=== PATIENT | female | born 2000 | race Caucasian/White ===

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

== ENCOUNTER 2022-01-18 09:49 | Outpatient (REF) | payer BC, MEDICAID, SELFPAY ==
[2022-01-18 11:33] LABS: HIV AB/AG Nonreactive (Nonreactive); HIV Num 1 0.04 S/CO (0.00-0.99)
[2022-01-18 11:36] LABS: Syphilis Screen Nonreactive (Nonreactive)
== END 2022-01-18 09:50 | disposition home or self-care (01) ==
LOC: HO.LAB 09:49
PROVIDERS: Absent Provider Internal Medicine; PCP Internal Medicine; Visit Provider Internal Medicine
DX: Z11.3 Encounter for screening for infections with a predominantly sexual mode of transmission (principal); Z11.4 Encounter for screening for human immunodeficiency virus [HIV]
CPT/HCPCS: 36415; 86780; 87389

== ENCOUNTER → 2022-04-19 14:00 | Outpatient (BNVA) | payer BC, MEDICAID, SELFPAY | PROVIDERS: PCP Internal Medicine; Visit Provider Advanced Practice Midwife | DX: Z13.89 Encounter for screening for other disorder (principal) ==

== ENCOUNTER → 2022-05-11 13:39 | Outpatient (BNVA) | payer BC, MEDICAID, SELFPAY | PROVIDERS: PCP Internal Medicine; Visit Provider Obstetrics & Gynecology | DX: Z30.09 Encounter for other general counseling and advice on contraception (principal) | CPT/HCPCS: 81025 ==

== ENCOUNTER 2022-08-07 14:19 | Outpatient (REF) | payer BC, SELFPAY ==
[2022-08-07 18:31] LABS: CT PCR NOT DETECTED (Not Detect.); NG PCR NOT DETECTED (Not Detect.)
[2022-08-08 09:56] LABS: BV Int Neg Control Negative (Negative); BV Int Pos Control Positive (Positive)
== END 2022-08-07 14:20 | disposition home or self-care (01) ==
LOC: HO.LNP 14:19
PROVIDERS: PCP Internal Medicine; Visit Provider Obstetrics & Gynecology
DX: Z30.9 Encounter for contraceptive management, unspecified (principal); B37.31 Acute candidiasis of vulva and vagina
CPT/HCPCS: 0353U; 87480; 87510; 87660

== ENCOUNTER 2022-09-25 15:33 | Outpatient (REF) | payer BC, SELFPAY ==
[2022-09-26 16:05] LABS: CT PCR NOT DETECTED (Not Detect.); NG PCR NOT DETECTED (Not Detect.)
== END 2022-09-25 15:34 | disposition home or self-care (01) ==
LOC: HO.LNP 15:33
PROVIDERS: PCP Internal Medicine; Visit Provider Obstetrics & Gynecology
DX: Z30.9 Encounter for contraceptive management, unspecified (principal); N93.9 Abnormal uterine and vaginal bleeding, unspecified; Z20.2 Contact with and (suspected) exposure to infections with a predominantly sexual mode of transmission
CPT/HCPCS: 0353U; 81025

== ENCOUNTER 2022-11-28 12:14 | Outpatient (AMB) | payer BC, SELFPAY ==
--- NOTE | 2022-11-28 13:43 | AM.OFFWIN_ITS ---
Intake Vital Signs 11/28/22 13:49 Height 5 ft 2 in Weight 130 lb BMI 23.8 BP 122/70 Blood Pressure Location Lt brachial Position Sitting Pulse 97 Pulse Source Pulse Oximeter Temp 97.3 F Temp Source Temporal Artery Scan Pulse Oximetry (%) 97 Oxygen Delivery Method Room Air Intake Visit Reasons: EST/sinus infection/[phone] Intake Note: Pt is here c/o post covid symptoms. Pt states she tested positive for COVID on 11/23/22. Patient Tobacco Use Status: Never used Tobacco Allergies No Known Allergies Allergy (Verified 11/28/22 13:43) Do you need a note to return to daycare/school/sports/work: No HPI EST/sinus infection/[phone] HPI Details 22-year-old female patient presents today for sick visit. She developed COVID symptoms last week, and tested positive on 11/23. Since then, the worst of her symptoms including headache and body ache have resolved, however she has persistent severe sinus pressure and congestion. She has been taking Mucinex at home without relief. She has a trip planned this weekend and is afraid she will not feel better by then. She is also set to return to work in 2 days and is not sure she will feel ready to do so at that time. [facility] Medical History Cough Dizziness Palpitations Physical exam Scoliosis Weight loss Surgical History No pertinent past surgical history Family History Mother No problems noted. Father No problems noted. Maternal Grandfather Breast cancer Paternal Grandmother Breast cancer Maternal Grandfather Cancer Social History Housing: House Alcohol intake: never Patient Tobacco Use Status: Never used Tobacco e-Cigarette/Vaping Use: Never Used Second Hand Smoke Exposure: No service: No Current occupational status: employed Current occupational exposures/hazards: No Cognitive needs: No Hearing needs: No Vision needs: No Female Reproductive History Menstrual Age of Menarche: 16 Review of Systems Const All systems reviewed & are unremarkable except as noted in HPI and below Physical Exam Vital Signs: Last Vital Signs Temp 97.3 F 11/28/22 13:49 Pulse 97 11/28/22 13:49 BP 122/70 11/28/22 13:49 Pulse Ox 97 11/28/22 13:49 Oxygen Delivery Method Room Air 11/28/22 13:49 BMI result Body Mass Index 23.8 Const General: cooperative, healthy appearing and no acute distress HEENT Head: Yes normal to inspection Ears: hearing grossly normal bilaterally and TM's normal bilaterally General nose exam: Normal external nose present and Normal nasal mucous membranes and turbinates present Face and sinus: Yes sinus tenderness ( Frontal and maxillary) Mouth: Normal oral and palatal mucosa present and moist mucous membranes Throat: Yes posterior oropharynx normal Neck Neck: Yes no lymphadenopathy Resp Effort & Inspection: normal respiratory effort and able to speak in complete sentences Auscultation: clear to auscultation bilaterally Cardio Jugular venous distension: no JVD Palpation: normal PMI Rate: regular rate Rhythm: regular rhythm Skin General skin exam: no rashes or lesions noted Extrem General: Yes capillary refill normal and Yes no clubbing, cyanosis or edema Psych Appearance: grossly normal Mental Status: mental status grossly normal Speech and movement: Normal speech and movement present Assessment & Plan Assessment & Plan (1) COVID-19: Code(s): U07.1 - COVID-19 Plan: Patient has some ongoing COVID-19 symptoms, which we reviewed are common. I encouraged her to continue to rest, hydrate, advanced diet as tolerated. I provided her a work note as requested. If anything worsens, or does not continue to resolve with time and conservative measures, she should return to the clinic for further evaluation. (2) Sinusitis, acute: Code(s): J01.90 - Acute sinusitis, unspecified Qualifiers: Sinusitis location: frontal Recurrence: non-recurrent Qualified Code(s): J01.10 - Acute frontal sinusitis, unspecified Plan: I will start her on azithromycin for her sinusitis. She has done well on this previously. We reviewed indications, use, possible side effects. She can continue to use decongestants as needed. Medications: New azithromycin For 250 mg dose pack: take 500 mg today (day 1), then 250 mg for 4 days (days 2-5) PO 6 tabs 0RF J01.10 - Acute frontal sinusitis, unspecified Coding Level of Care Code Est Pt Level 3 (14464) Diagnoses COVID-19 U07.1 Sinusitis, acute J01.10 Sinusitis location: frontal Recurrence: non-recurrent
[2022-11-28 13:49] VITALS: BP 122/70; PULSE 97; TEMP 36.3; O2SAT 97; BMI 23.8
== END 2022-11-28 14:14 | disposition home or self-care (01) ==
PROVIDERS: PCP Internal Medicine; Visit Provider Nurse Practitioner Family
DX: U07.1 COVID-19 (principal); J01.10 Acute frontal sinusitis, unspecified
CPT/HCPCS: 99213

== ENCOUNTER 2023-01-30 14:27 | Outpatient (AMB) | payer BC, SELFPAY ==
--- NOTE | 2023-01-30 14:35 | MHC.OFFVIS ---
Intake Vital Signs 01/30/23 14:43 Height 5 ft 2 in Weight 127 lb 13.89 oz BMI 23.4 BP 112/68 Intake Visit Reasons: spotting on OCP's Crna Required: No Information Interpreted: non-clinical & clinical Accompanied by: Self / Same As Patient Allergies No Known Allergies Allergy (Verified 01/30/23 14:42) HPI HPI Comments History of Present Illness Details Presenting complaining of vaginal spotting since the beginning of [place] in 05/08 peer patient was seen in 10/06 urine test was negative and GC/CT was negative. Since then had another continuous episode of vaginal spotting PFSH Medical History Physical exam Cough Dizziness Palpitations Weight loss Scoliosis Surgical History No pertinent past surgical history Family History Mother No problems noted. Father No problems noted. Maternal Grandfather Breast cancer Paternal Grandmother Breast cancer Maternal Grandfather Cancer Social History Housing: House Alcohol intake: never Patient Tobacco Use Status: Never used Tobacco e-Cigarette/Vaping Use: Never Used Second Hand Smoke Exposure: No service: No Current occupational status: employed Current occupational exposures/hazards: No Cognitive needs: No Hearing needs: No Vision needs: No Female Reproductive History Menstrual Age of Menarche: 16 Review of Systems Const All systems reviewed & are unremarkable except as noted in HPI and below Reports as per HPI and Reports no additional complaints GI Reports no additional complaints Reports no additional complaints Physical Exam Vital Signs: Last Vital Signs BP 112/68 01/30/23 14:43 BMI result Body Mass Index 23.4 Assessment & Plan Assessment & Plan (1) Contraceptive management: Code(s): Z30.9 - Encounter for contraceptive management, unspecified Plan: UPT was done in the office and was negative. Discussed with the patient the different options of control including control pills cyclic/Nuvaring, Depo Medroxy Progesterone Acetate, IUD ( levonorgestrel, Copper). All the pros, cons, risks and benefits of each were discussed with the patient. The patient decided to go ahead with cycle BCP so a more detailed discussion re: control pills including mechanism of action, benefits (regular menses, less dysmenorrhea, less risk of ovarian cancer, ...), risks ( DVT, PE, Strokes, OK, increased breast ca, others). Instructions were given to use a back- up method for contraception x 1st 2 weeks, and to schedule a 3 months appointment for blood pressure check Medications: New desogestrel-ethinyl estradiol 0.15-0.03 mg (Apri) 1 tab PO DAILY 28 days 28 tabs 3RF Discontinued L norgest/e.estradiol-e.estrad 0.15 mg-30 mcg (84)/10 mcg (7) (Seasonique) Discontinued Reason: Doctor's Order 1 tab PO DAILY 84 days 84 ea 3RF Coding Level of Care Code Est Pt Level 3 (03210) Diagnoses Contraceptive management Z30.9
[2023-01-30 14:43] VITALS: BP 112/68; BMI 23.4
== END 2023-01-30 15:31 | disposition home or self-care (01) ==
LOC: HO.HWS 14:27
PROVIDERS: PCP Internal Medicine; Visit Provider Obstetrics & Gynecology
DX: Z30.9 Encounter for contraceptive management, unspecified (principal)
CPT/HCPCS: 99213

== ENCOUNTER → 2023-01-30 14:27 | Outpatient (BNVA) | payer BC, SELFPAY | PROVIDERS: PCP Internal Medicine; Visit Provider Obstetrics & Gynecology ==

== ENCOUNTER 2023-10-30 10:28 | Outpatient (AMB) | payer BC, SELFPAY ==
--- NOTE | 2023-10-30 10:46 | A.OFFVIS_ITS ---
Vital Signs 10/30/23 10:47 Height 5 ft 2 in Weight 140 lb BMI 25.6 BP 110/60 Intake Visit Reasons: control follow up [employer] Required: No Information Interpreted: non-clinical & clinical Accompanied by: Self / Same As Patient Allergies No Known Allergies Allergy (Verified 10/30/23 10:55) Is last menstrual period known: Yes Last menstrual period: 10/17/23 HPI Comments Details: The patient is presenting for follow up. The patient has no complaints, she is taking a pill every day with no problems, her menses are regular and light [facility] Medical History Physical exam Cough Dizziness Palpitations Weight loss Scoliosis Surgical History No pertinent past surgical history Family History Mother No problems noted. Father No problems noted. Maternal Grandfather Breast cancer Paternal Grandmother Breast cancer Maternal Grandfather Cancer Social History Housing: House Alcohol intake: never Patient Tobacco Use Status: Never used Tobacco e-Cigarette/Vaping Use: Never Used Second Hand Smoke Exposure: No service: No Current occupational status: employed Current occupational exposures/hazards: No Cognitive needs: No Hearing needs: No Vision needs: No Female Reproductive History Menstrual Age of Menarche: 16 Date of last menstrual period: 10/17/23 control method: pills Review of Systems Const All systems reviewed & are unremarkable except as noted in HPI and below Reports as per HPI and Reports no additional complaints GI Reports no additional complaints Reports no additional complaints Physical Exam Vital Signs: Last Vital Signs BP 110/60 10/30/23 10:47 BMI result Body Mass Index 25.6 Assessment & Plan Assessment & Plan (1) Abnormal uterine bleeding (AUB): Comment: On control pills Code(s): N93.9 - Abnormal uterine and vaginal bleeding, unspecified Category: Medical Plan: control pill prescription refilled, instructions given the patient to schedule an annual exam appointment within six-month and to call in case of any concern. All questions answered, the patient verbalized understanding. Medications: Refilled desogestrel-ethinyl estradiol 0.15-0.03 mg (Apri) 1 tab PO DAILY 28 days 28 tabs 11RF Coding Level of Care Code Est Pt Level 3 (22147) Diagnoses Abnormal uterine bleeding (AUB) N93.9
[2023-10-30 10:47] VITALS: BP 110/60; BMI 25.6
== END 2023-10-30 11:09 | disposition home or self-care (01) ==
PROVIDERS: PCP Internal Medicine; Visit Provider Obstetrics & Gynecology
DX: N93.9 Abnormal uterine and vaginal bleeding, unspecified (principal)
CPT/HCPCS: 99213

== ENCOUNTER → 2023-10-30 10:28 | Outpatient (BNVA) | payer BC, SELFPAY | PROVIDERS: PCP Internal Medicine; Visit Provider Obstetrics & Gynecology ==

== ENCOUNTER 2024-01-31 16:14 | Outpatient (AMB) | payer BC, SELFPAY ==
[2024-01-31 16:17] VITALS: BP 116/70; BMI 25.4
--- NOTE | 2024-01-31 16:17 | A.OFFPC_ITS ---
Vital Signs 01/31/24 16:17 Height 5 ft 2 in Weight 139 lb BMI 25.4 BP 116/70 Blood Pressure Location Lt brachial Position Sitting Intake Visit Reasons: Physical Exam Intake Note: Patient here for an Annual Physical Exam [employer]er [employer] Required: No Accompanied by: Self / Same As Patient Allergies No Known Allergies Allergy (Verified 01/31/24 16:33) Medication List - Last Reconciled 01/31/24 by Beatriz Kirk MD desogestrel-ethinyl estradiol 0.15-0.03 mg (Apri) 1 tab PO DAILY 28 days Tobacco use date assessed: 01/31/24 Dental Screening Dental Screen Date: 01/31/24 Did you have a dental visit in the last 12 months?: No Did you have a dental problem in the last 6 months where you did not have access to dental care?: No Was dental information given to patient?: Patient has dentist HPI HPI Comments History of Present Illness Details This is a 23-year-old female that comes for her physical exam. She will have a Pap smear soon by OBGYN. She complains of constipation that has been present for over 6 months. Denies any dietary changes or decreasing water intake. No blood in stools. [facility] Medical History (Updated 01/31/24 @ 16:49 by Beatriz Kirk MD) Physical exam Cough Dizziness Palpitations Weight loss Scoliosis Surgical History No pertinent past surgical history Family History Mother No problems noted. Father No problems noted. Maternal Grandfather Breast cancer Paternal Grandmother Breast cancer Maternal Grandfather Cancer Social History Housing: House Alcohol intake: never Patient Tobacco Use Status: Never used Tobacco e-Cigarette/Vaping Use: Never Used Second Hand Smoke Exposure: No service: No Current occupational status: employed Current occupational exposures/hazards: No Cognitive needs: No Hearing needs: No Vision needs: No Female Reproductive History Menstrual Age of Menarche: 16 Questionnaire PHQ-9 Over the last 2 weeks, how often have you been bothered by any of the following problems? 1. Little interest or pleasure in doing things: not at all 2. Feeling down, depressed, or hopeless: not at all 3. Trouble falling or staying asleep, or sleeping too much: not at all 4. Feeling tired or having little energy: not at all 5. Poor appetite or overeating: not at all 6. Feeling bad about yourself - or that you are a failure or have let yourself or your family down: not at all 7. Trouble concentrating on things, such as reading the newspaper or watching television: not at all 8. Moving or speaking so slowly that other people could have noticed. Or the opposite - being so fidgety or restless that you have been moving around a lot more than usual: not at all 9. Thoughts that you would be better off or of hurting yourself in some way: not at all Total score: 0 Depression Screening Interpretation: Negative Depression Screening Done: Yes 28297 - PHQ-9 Billing: Yes Source: Developed by Drs. Rao Gar, Julia Aragon, Mike Pratt and colleagues, with an educational leyda from [employer]. Thrive Questionnaire Date Thrive assessed: 01/31/24 I am a: Patient What is your living situation today?: I have a steady place to live Within the past 12 months, did the food you bought not last and you didn't have the money to get more?: Never true Within the past 12 months, did you worry whether your food would run out before you got money to buy more?: Never true Do you have trouble paying for medicines?: No Do you have trouble getting transportation to medical appointments?: No Do you have trouble paying your heating and electricity bill?: No Do you have trouble taking care of your child, family member or friend?: No Do you have trouble with day-to-day activities such as bathing, preparing meals, shopping, managing finances, etc.?: No Are you currently unemployed and looking for a job?: No Are you interested in more education?: No Please select the resources that you would like help with: None Currently or been in a relationship where the following occur: No concerns reported THRIVE Score: 0 AUDIT C Alcohol Use Questionnaire (AUDIT-C) 1. How often do you have a drink containing alcohol?: Never Total Score: 0 Score Reviewed/Action Taken: No YISEL-7 AMB Questionnaire YISEL-7 Date YISEL - 7 assessed: 01/31/24 Feeling nervous, anxious, or on edge: 0 = Not at all Not being able to stop or control worryin = Not at all Worrying too much about different things: 0 = Not at all Trouble relaxin = Not at all Being so restless that it is hard to sit still: 0 = Not at all Becoming easily annoyed or irritable: 0 = Not at all Feeling afraid as if something awful might happen: 0 = Not at all Total YISEL-7 score (0-4 normal; 5-9 mild; 10-14 moderate; 15-21 severe): 0 Source: Developed by Drs. Rao Gar, Julia Aragon, Mike Pratt and colleagues, with an educational leyda from [employer]. YISEL-7 Assessment Billing YISEL-7 Assessment Tool: YISEL-7 Assessment 61791 Review of Systems Const All systems reviewed & are unremarkable except as noted in HPI and below Card Denies chest pain at rest, Denies chest pain with activity, Denies edema, Denies irregular heart rhythm, Denies claudication, Denies dyspnea, Denies dyspnea on exertion, Denies orthopnea, Denies paroxysmal nocturnal dyspnea and Denies slow heart rate Resp Denies cough, Denies dyspnea and Denies dyspnea on exertion GI Denies abdominal pain, Reports bloating, Denies change in bowel habits, Reports constipation, Denies excessive flatus, Denies nausea and Denies vomiting Denies urinary incontinence, Denies urinary hesitancy and Denies urinary urgency Musc Denies abnormal gait, Denies atrophy, Denies deformity and Denies limited range of motion Neuro Denies abnormal gait and Denies lack of coordination Physical exam (Primary Care) Vital Signs: Last Vital Signs BP 116/70 01/31/24 16:17 BMI result Body Mass Index 25.4 Tobacco/Smoking Status: Tobacco use Status Tobacco use date assessed 01/31/24 01/31/24 16:22 Patient Tobacco Use Status Never used Tobacco 01/31/24 16:22 e-Cigarette/Vaping Use Never Used 01/31/24 16:22 PHQ-9: PHQ-9 Score PHQ-9: Total score 0 01/31/24 16:35 Depression Screening Interpretation: Negative Thrive Assessment: Date of Thrive Assessment Date Thrive assessed 01/31/24 01/31/24 16:22 Currently or been in a relationship where the following occur: No concerns reported HENMT Head: Yes normal to inspection, Yes normocephalic and Yes atraumatic Ears: external ears normal Eyes General: appearance normal, both eyes and all related structures Eyelids: Yes eyelids normal Conjunctivae: conjunctivae normal Neck Neck: Yes normal visual inspection and Yes supple Resp Effort & Inspection: normal respiratory effort Auscultation: clear to auscultation bilaterally Cardio Jugular venous distension: no JVD Rate: regular rate Rhythm: regular rhythm Heart sounds: S1 normal heart sound present and S2 normal heart sound present GI Inspection: Yes normal to inspection Palpation (GI): Soft to palpation and nontender Auscultation: normal bowel sounds Skin General skin exam: no rashes or lesions noted Neuro General: no focal motor deficits Extrem General: Yes full ROM Psych Appearance: grossly normal Office Procedures Flu Questionnaire Does the patient have a severe egg allergy?: No Immunizations Fluarix Triv [id number] (PF) 45 mcg (15 mcg x 3)/0.5 mL IM syringe Performing Provider: Beatriz Kirk MD [facility] Documented (not given) by: BARTOLO Mccormick on 01/31/24 16:48 Reason Not Given: Patient Refused Coding Level of Care Code Est Pt Level 3 (57055) Est Pt Prev Care 18-39y(97180) Diagnoses Physical exam Z00.00 Chronic idiopathic constipation K59.04 Additional Codes YISEL-7 Assessment Billing - YISEL-7 Assessment Tool: YISEL-7 Assessment 69902 ([id number]) Time Spent (min) 35 Assessment & Plan Assessment & Plan (1) Physical exam: Code(s): Z00.00 - Encounter for general adult medical examination without abnormal findings Category: Medical Plan: Repeat in a year. (2) Chronic idiopathic constipation: Code(s): K59.04 - Chronic idiopathic constipation Category: Medical Plan: Labs ordered. Was advised to do a high-fiber diet. Orders: Orders XR thoracic spine 2V 01/31/24 M54.6 - Pain in thoracic spine Complete Blood Count Auto Diff 01/31/24 K59.04 - Chronic idiopathic constipation Lipid Panel 01/31/24 Z00.00 - Encounter for general adult medical examination without abnormal findings Influenza [id number] Immunization 01/31/24 Z23 - Encounter for immunization PT Evaluation and Treatment 01/31/24 M54.6 - Pain in thoracic spine Celiac Disease Panel 01/31/24 K59.04 - Chronic idiopathic constipation Thyroid Stimulating Hormone 01/31/24 K59.04 - Chronic idiopathic constipation Comprehensive [place]. Panel Fast 01/31/24 Z00.00 - Encounter for general adult medical examination without abnormal findings
== END 2024-01-31 16:50 | disposition home or self-care (01) ==
PROVIDERS: PCP Internal Medicine; Visit Provider Internal Medicine
DX: Z00.00 Encounter for general adult medical examination without abnormal findings (principal); K59.04 Chronic idiopathic constipation

== ENCOUNTER → 2024-01-31 16:14 | Outpatient (BNVA) | payer BC, SELFPAY | PROVIDERS: PCP Internal Medicine; Visit Provider Internal Medicine | DX: Z00.01 Encounter for general adult medical examination with abnormal findings (principal); K59.04 Chronic idiopathic constipation; Z28.21 Immunization not carried out because of patient refusal | CPT/HCPCS: 90471; 96127 ==

== ENCOUNTER 2024-03-27 10:52 | Outpatient (RCR) | payer BC, SELFPAY ==
--- NOTE | 2024-03-19 15:51 | MHC.PT.EP ---
[facility] [place] Office [place] Office [place] Office [address] Jos Turcios [address] [phone] F: [phone] F: [phone] F: [phone] F: [phone] Physical Therapy Plan of Care Date of Evaluation: 03/18/24 Date of Surgery: n/a Diagnosis: Pain in thoracic spine Assessment: Pt is a pleasant and motivated 23yo F who presents to PT with intermittent back pain for ~6 months. She has history of scoliosis with previous bracing. She presents to PT with current impairments in pain, decreased thoracic ROM, muscular imbalance, decrease strength, soft tissue restrictions, and impaired posture. She is limited functionally by prolonged sitting, prolonged standing and ambulation. She is an excellent candidate for skilled PT in order to address current impairments to facilitate return to PLOF. She is recommended to be seen2x/week for 4 weeks and will be reassessed at that time Frequency and Duration: The patient will be seen 2x/week for 4 weeks Short Term Goals: Pt will be I with HEP to promote self management of symptoms Pt will demonstrate improvements in postural awareness with standing and sitting throughout the day [facility] Goals: Pt will tolerate prolonged sitting > 30 min with improved posture and without pain Pt will tolerate prolonged standing and walking > 1 hour with improved posture and minimal to no pain Treatment Plan: Modalities to reduce pain, spasms and effusion. Manual therapy to restore motion and function. Therapeutic exercise to improve strength and flexibility. Neuromuscular re-education for posture and balance. Therapeutic activities to return to functional activities of daily living. Electronically signed by: Erin House, PT, DPT Please sign and return to therapist. Thank you for your referral.
--- NOTE | 2024-05-21 12:50 | MHC.PT.DC ---
[facility] [place] [facility] [place] Office [place] Office [address] Jos Turcios [address] [phone] F: [phone] F: [phone] F: [phone] F: [phone] Physical Therapy Discharge Report Diagnosis: Pain in thoracic spine Date of Surgery: n/a Date of Evaluation: 03/18/24 Date of Discharge: 05/21/24 Treatments to Date: 3 Cancellations to Date: 4 No Shows to Date: Discharge Status: Patient Elected to Stop Discharge Summary: Pt was seen for PT from 03/18/24-03/27/24. Her last attended appointment was 03/27/24. She cancelled her last 4 scheduled appointments. She is being D/C from skilled PT as she has not attended or called to reschedule in > 30 days. Pt current level of function unknown at this time Electronically signed by: Erin House, PT, DPT Please sign and return to therapist. Thank you for your referral.
== END 2024-05-21 12:50 | disposition home or self-care (01) ==
LOC: HO.PT 10:52
PROVIDERS: PCP Internal Medicine; Visit Provider Internal Medicine
DX: M54.6 Pain in thoracic spine (principal)
CPT/HCPCS: 97110; 97140; 97161; 97530

== ENCOUNTER 2024-08-18 11:45 | Outpatient (AMB) | payer BC, SELFPAY ==
[2024-08-18 12:10] VITALS: BP 120/74; BMI 25.2
--- NOTE | 2024-08-18 12:10 | A.OFFVIS_ITS ---
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 The patient went to emergency room while visiting in [place] for vulvovaginal itching, BV panel and Trichomonas were done in negative, urine dip showed microscopic hematuria and leukocyte esterase urine culture grew preop plasma according to the patient, no records available, the patient was prescribed azithromycin which she did not take. The patient took Diflucan 150 mg x 1 her symptoms resolved, no urinary frequency or dysuria no other symptoms. The patient is doing well with minimal vaginal discharge not associated with any vulvovaginal itching or odor PFSH Medical History Physical exam Cough Dizziness Palpitations Weight loss Scoliosis Surgical History No pertinent past surgical history Family History Mother No problems noted. Father No problems noted. Maternal Grandfather Breast cancer Paternal Grandmother Breast cancer Maternal Grandfather Cancer Social History Housing: House Alcohol intake: never Patient Tobacco Use Status: Never used Tobacco e-Cigarette/Vaping Use: Never Used Second Hand Smoke Exposure: No service: No Current occupational status: employed Current occupational exposures/hazards: No Cognitive needs: No Hearing needs: No Vision needs: No Female Reproductive History Menstrual Age of Menarche: 16 Date of last menstrual period: 07/30/24 Review of Systems Const All systems reviewed & are unremarkable except as noted in HPI and below Physical Exam Vital Signs: Last Vital Signs BP 120/74 08/18/24 12:10 BMI result Body Mass Index 25.2 General: Yes no CVA tenderness External Female Exam: normal external appearance and normal appearance of the urethra Speculum Exam - Vagina: normal appearance of the vagina, normal palpation, no lesions and no masses Speculum Exam - Cervix: normal appearance of the cervix, normal palpation, no lesions, no masses and nontender Bimanual exam- vagina & uterus: normal bimanual exam, normal palpation, uterine size normal, normal palpation, uterine shape normal, No Cervical tenderness present and non-tender Bimanual Exam- Adnexa, other: normal adnexae Back/Spine/Pelvis Back: no CVA tenderness Assessment & Plan Assessment & Plan (1) Vulvovaginitis: Code(s): N76.0 - Acute vaginitis Category: Medical Plan: GC/CT with BV panel collected. Will check the results and treat accordingly (2) Microscopic hematuria: Code(s): R31.29 - Other microscopic hematuria Category: Medical Plan: Urine dip showed microscopic hematuria, urine culture sent. Will repeat urine d ip in 2 weeks. Discussed with the patient the possible causes of microscopic hematuria including but not limited to: interstitial cystitis, polyps, stones, masses, urethral inflammatory processes and others. If Urine Culture is negative and repeat urine dip in 2 weeks shows persistent microscopic hematuria, will proceed with CT abdomen/pelvis and urology referral. Instructions given the patient to schedule a 2 week urine dip follow-up appointment. All questions answered and the patient verbalized understanding. Coding Level of Care Code Est Pt Level 3 (51339) Diagnoses Vulvovaginitis N76.0 Microscopic hematuria R31.29
--- OUTSIDE RECORDS SUMMARY | 2024-08-18 13:32 | XMS_ITS | Encounter Summary ---
Author Organization [facility] Address [address] [place] [address] Phone Care Team Providers Care Flaking Roll Operator Name Role Phone Bernice Martínez MD Primary Care Provider [phone] Encounter Details Date Type Department Care Team (Late st Contact Info) Description 11/30/2016 Conversion Encounter [facility] [address] [place] [address] Social History Tobacco Use Types Packs/Day Years Used Date Smoking Tobacco: Never Assessed Comments Unknown Sex and Gender Information Value Date Recorded Sex Assigned at Female 06/14/2020 2:02 PM EST Legal Sex Female 5:01 PM EDT Gender Identity Female 06/14/2020 2:02 PM EST Sexual Orientation Straight 06/14/2020 2: 02 PM EST documented as of this encounter Plan of Treatment Not on file documented as of this encounter Visit Diagnoses Not on filedocumented in this encounter Care Teams Flaking Roll Operator Relationship Specialty Start Date End Date Bernice Martínez MD [address] [place] [address] PCP - General Pediatrics 12/31/17 10/23/23 documented as of this encounter
--- OUTSIDE RECORDS SUMMARY | 2024-08-18 13:32 | XMS_ITS | Encounter Summary ---
Author Organization [facility] Address [address] [place] [address] Phone Care Team Providers Care Elevator Repairer Name Role Phone Bernice Martínez MD Primary Care Provider [phone] Encounter Details Date Type Department Care Team (Late st Contact Info) Description 11/30/2016 Documentation [facility] [place] Family Medicine [address] [place] [address] Family Medicine, Physician [address] [place], [place] [id number] Social History Tobacco Use Types Packs/Day Years [...] on filedocumented in this encounter Care Teams Elevator Repairer Relationship Specialty Start Date End Date Bernice Martínez MD [address] [place] [address] PCP - General Pediatrics 12/31/17 10/23/23 documented as of this encounter
--- OUTSIDE RECORDS SUMMARY | 2024-08-18 13:32 | XMS_ITS | Encounter Summary ---
Author Organization [facility] Address [address] [place] [address] Phone Care Team Providers Care Nuclear Reactor Engineer Name Role Phone Bernice Martínez MD Primary Care Provider [phone] Encounter Details Date Type Department Care Team (Late st Contact Info) Description 08/11/2016 Documentation [facility] [place] Family Medicine [address] [place] [address] Family Medicine, Physician [address] [place], [place] [id number] Social History Tobacco Use Types Packs/Day Years [...] on filedocumented in this encounter Care Teams Nuclear Reactor Engineer Relationship Specialty Start Date End Date Bernice Martínez MD [address] [place] [address] PCP - General Pediatrics 12/31/17 10/23/23 documented as of this encounter
--- OUTSIDE RECORDS SUMMARY | 2024-08-18 13:32 | XMS_ITS | Clinical Summary ---
Author Organization [facility] Address [address] [place] [phone] Phone Care Team Providers Care Car Cleaning Supervisor Name Role Phone Unavailable Primary Care Provider Unavailabl e Allergies No known active allergies Medications No known medications Active Problems Problem Noted Date Diagnosed Date Personal history of COVID-19 10/27/2020 Overview (10/27/2020): Pt reported to night nurse, pos on 10/26/20 Assessment & Plan (01/26/2021 4:31 PM EDT): Had covid 10/26/20 Borderline hyperlipidemia 06/15/2020 Overview (06/15/2020): 07/04 NFLs: TC 191, HDL 55, non-HDL 136. Diet suggestions sent through [employer]. Severe obstructive sleep apnea 11/06/2018 Overview (11/06/2018): 11/06/18- PSG with severe BOLIVAR, rec staying off back for sleep, ENT consult, no sedatives/hypnotics, TFTs if not already done, and refer back for CPAP if no surgery. Assessment & Plan (06/14/2020 2:26 PM EST): I recommended mom to call ENT (phone number given). Vaccine refused by parent 06/13/2018 Overview (06/14/2020): Flu, HPV, and HAV refused 06/13/18 after much counseling. Info sheets given. HAV and menactra refused 06/14/20. Assessment & Plan (06/13/2018 9:03 AM EST): Counseled at length, mom still refusing, though admits it's because she doesn't really know about the vaccines. Adolescent idiopathic scoliosis of thoracolumbar region 06/12/2017 Overview (06/14/2020): Followed at [facility]. 05/22/17- They recommended surgery, however family wants to wait. The idea of surgery is overwhelming for the mother, the patient says she doesn't want to do it but will if she has to. Father completely against the surgery. According to mother and patient, [facility] does not want them wearing a brace, they are just going to wait and see if her scoliosis gets worse. 06/04- Family didn't go back as they were supposed to in summer 2017, but okay going back now, so re-referred. 07/04- never followed up with [facility]. Assessment & Plan (05/01/2019 10:56 AM EST): Never went back to [facility], they missed the appointment. I recommended they call again for f/u. Assessment & Plan (06/13/2018 9:22 AM EST): No pain, but realize her scoliosis is significant. New referral to [facility] as it's been a year since her last visit, but mom to call to make appt and will let us know when it is. Resolved Problems Problem Noted Date Diagnosed Date Resolved Date Well adolescent visit with abnormal findings 8 06/12/2017 Immunizations Immunization Administration Dates Next Due DTaP 5 09/17/2007, 4,04/21/2003,02/03,2002 H1N1 02/25/2009 HPV Vaccine 9 Valent 06/14/2020 HPV, Quadrivalent 07/14/2014 Hep B, ped/adol 07/14/2003,04/21/2003,2002 Hib (HbOC) 03/21/2004, 4,02/03/2003,12/01 IPV 09/17/2007, 4,02/03/2003,12/01 Influenza, injectable, quadr ivalent, preservative free 04/04/2020 Influenza, intranasal, trivalent 01/01/2012,02/14,12/29/2009 MMR 09/17/2007,10/07/2003 Meningococcal Conj (Menactra) MCV4P 07/14/2014 Pneumococcal Conjugate 03/21/2004,2003,02/03/2003,12/01 Tdap 07/14/2014 Varicella 09/17/2007,10/07/2003 Family History Medical History Relation Name Comments Hypertension Father Yuri Warren Cancer Maternal Grandfather Breast cancer Maternal Grandmother No Known Problems Mother Arabella Parks Heart disease (Premature) Paternal Grandfather mid-late 50s Cancer Paternal Grandmother Hypertension Paternal Grandmother Obesity Paternal Grandmother Relation Name Status Comments Father Yuri Warren Alive Father: Alive and well, Hyperlipidemia Maternal Grandfather Materna l grandfather: Asthma Maternal Grandmother Mother Arabella Parks Alive Mother: a nxiety Other Family history of Diabetes mellitus Paternal Grandfather Paternal Grandmother Social History Tobacco Use Types Packs/Day Years Used Date Smoking Tobacco: Never Smokeless Tobacco: Never Alcohol Use Standard Drinks/Week Comments Never 0 (1 standard drink = 0.6 oz pur e alcohol) Hunger/Food Answer Date Recorded In the last 12 months, did y ou or your family ever eat less than you felt you should because there wasn't enough money for food? No 06/14/2020 Stable Housing Answer Date Recorded Are you worried that in the next 2 months you may not have stable housing? No 06/14/2020 Transportation Concerns Answer Date Rec orded In the last 12 months, have you or your family ever had to go without healthcare because you didn't have a way to get there? No 06/14/2020 Hazards in Home Answer Date Recorded Think about the place you li ve. Do you have problems with any of the following? Pests (mice or roaches), mold, no/not working smoke detectors, water leaks, no window guards. No 2020 Financing Utilities Answer Date Recorde d In the last 12 months, has t he electric, gas, oil, or water company threatened to shut off your services in your home? No 06/14/2020 Safety at Home Answer Date Recorded Are you or your family worried about feeling saf e in your home? No 06/14/2020 Outside Support Answer Date Recorded Do you feel that you need mo re support from other people or programs to help you care for yourself or your family? No 06/14/2020 Understanding Health Concerns Answer Da te Recorded Do you need help understandi ng your or your child's healthcare needs (diagnosis, medications, plan, etc.)? No 06/14/2020 Financing Health Concerns Answer Date R ecorded In the last 12 months, was t here a time when your child needed to see a doctor or get medications or supplies but could not because of cost? No 06/14/2020 Missing School or Work Answer Date Zachery rded Did you or your child miss s chool or work because of a health problem that could have been avoided? No 06/14/2020 Comments No Sex and Gender Information Value Date Recorded Sex Assigned at Female 06/14/2020 2:02 PM EST Legal Sex Female 5:01 PM EDT Gender Identity Female 06/14/2020 2:02 PM EST Sexual Orientation Straight 06/14/2020 2: 02 PM EST Last Filed Vital Signs Vital Sign Reading Time Taken Comments Blood Pressure 112/68 04/20/2021 4:24 PM EST Pulse 104 04/20/2021 4:24 PM EST Temperature 36.4 ??C (97.6 ??F) 04/20/2021 4:24 PM ES T Respiratory Rate - - Oxygen Saturation - - Inhaled Oxygen Concentration - - Weight 52 kg (114 lb 9.6 oz) 04/20/2021 4:24 PM EST Height 158.1 cm (5' 2.25 ) 04/14/2021 4:54 PM ES T Body Mass Index 20.79 04/14/2021 4:54 PM EST Plan of Treatment Health Maintenance Due Date Last Done Comments Men B Vaccine (1 of 2 - Standard) 2018 Influenza Vaccines (#1) 2023 04/04/20 20, 01/01/2012, 03/03/2010, Additional history exists COVID-19 Vaccine (3 - season) 2023 12/22/2020, 12/01/2020 DTaP,Tdap,and Td Vaccines (7 - Td or Tdap) 07/14/2024 07/14/2014, 09/17/2007, 03/21/2004, Additional history exists Hepatitis B Vaccines Completed 07/14/2003, 04/21/2003, 2002 HIB Vaccines Completed 03/21/2004, 09/2003, 02/03/2003, Additional history exists Pneumococcal Vaccine Completed 03/21/2004, 04/21/2003, 02/03/2003, Additional history exists IPV Vaccines Completed 09/17/2007, 06/16, 02/03/2003, Additional history exists Meningococcal Vaccine Aged Out 07/14/2014 No alhaji ramón eligible based on patient's age to complete this topic HPV Vaccines Completed 06/14/2020, 07/14/2014 MMR Vaccines Completed 12/04/2022, 06/2007, 10/07/2003 Varicella Vaccines Completed 12/04/2022, 0 09/17/2007, 10/07/2003 Hepatitis A Vaccines Aged Out No long er eligible based on patient's age to complete this topic Procedures * Due to [place] [employer] law, this organization might not be sharing sensitive test results. Procedure Name Priority Date/Time Associated Diagnosis Comments SURESWAB (ADV) VAGINITIS PLUS, TMA Routine 07/01/2020 3:55 PM EDT Acute vaginitis from Last 3 Months or Most Recently Relevant to Health Maintenance Results * Due to [place] [employer] law, this organization might not be sharing sensitive test results. * (ABNORMAL) Vaginosis Vaginitis Plus (07/01/2020 3:55 PM EDT) BACTERIAL VAGINOSIS TEST NEGATIVE (NEG) [facility] Comment: No bacterial vaginosis targets by PCR detected in this patient's sample. ?? Note: This assay uses real time quality control scientist-mediated amplification (TMA) for detection and quantification of ribosomal RNA from bacteria associated with bacterial vaginosis (BV), including Lactobacillus (L. gasseri, L. crispatus, and L. jensenii), Gardnerella vaginalis, and Atopobium vaginae. Jewels Species POSITIVE(A) (NEG) [facility] Comment: Jewels species group (C. albicans, C. tropicalis, C. parapsilosis, C. dubliniensis) targets by PCR detected in this patient's sample. Jewels Glabrata, ALLISON NEGATIVE (NEG) [facility] Comment:No Jewels glabrata targets by PCR detected in this patient's sample. SureSwab, T.vaginalis RNA NEGATIVE (NEG) [facility] Comment: No Trichomonas vaginalis targets by PCR detected in this patient's sample. ?? Note: This assay uses real time quality control scientist-mediated amplification (TMA) for detection and quantification of ribosomal RNA from organisms associated with Jewels species group (C. albicans, C. tropicalis, C. parapsilosis, C. dubliniensis), Jewels glabrata, and Trichomonas vaginalis. Chlamydia Trachomatis, Amplified NEGATIVE (NEG) [facility] Comment: No Chlamydia Trachomatis RNA detected in this patient's sample ? (REFERENCE RANGE/NORMAL VALUE: NOT DETECTED) ? Note: This test uses quality control scientist- mediated amplification method to detect rRNA from C. Trachomatis N.GONORRHOEAE AMP PROBE NEGATIVE (NEG) [facility] Comment: No Neisseria Gonorrhoeae RNA detected in this patient's sample ? (REFERENCE RANGE/NORMAL VALUE: NOT DETECTED) ? NOTE: This test uses quality control scientist-mediated amplification method to detect rRNA from N.Gonorrhoeae. A negative result does not preclude infection. In the case of a negative urine result, testing of an endocervical(female) or urethral (male) specimen is recommended if there is high clinical suspicion of infection. Due to very high sensitivity of Nucleic Acid Amplification Test, false positive results may occur. Therefore, specimen handling is extremely important. In patients in whom the disease is unlikely, additional sample for testing should be considered after an initial positive result. The performance characteristics of this test have not been evaluated in children. The Aptima Combo2 assay is not intended for the evaluation of suspected sexual abuse or for other medico-legal indications. The ordering provider should assess if the patient had consensual sex without risk of sexual abuse. Consult the [facility] if needed. Contact phone number . Therapeutic failure or success cannot be determined with the Aptima Combo2 assay since nucleic acid may persist following appropriate antimicrobial therapy. The Centers for Disease Control and Prevention (CDC) recommends confirmatory retesting using culture or a different nucleic acid amplification test when positive results occur, if indicated. Testing performed or reported by [facility], a Service of [facility], [address] [place] [address] Beau Platt MD, Director Electronics Swab 07/01/2020 3:55 PM EDT 07/01/2020 10:14 PM EDT us Bernice Martínez MD LAB MICROBIOLOGY - GENERAL OR DERABLES Final Result [facility] from Last 3 Months or Most Recently Relevant to Health Maintenance Insurance [facility] NON [facility] FEDERAL
== END 2024-08-18 12:40 | disposition home or self-care (01) ==
LOC: HO.HWS 11:45
PROVIDERS: PCP Internal Medicine; Visit Provider Obstetrics & Gynecology
DX: N76.0 Acute vaginitis (principal); R31.29 Other microscopic hematuria
CPT/HCPCS: 99213

== ENCOUNTER 2024-08-18 11:45 | Outpatient (REF) | payer BC, SELFPAY ==
--- OUTSIDE RECORDS SUMMARY | 2024-08-18 14:08 | XMS_ITS | Encounter Summary ---
Author Organization [facility] Address [address] [place] [address] Phone Care Team Providers Care B2B Sales Consultant Name Role Phone Bernice Martínez MD Primary Care Provider [phone] Encounter Details Date Type Department Care Team (Late st Contact Info) Description 08/11/2016 Documentation [facility] [place] Family Medicine [address] [place] [address] Family Medicine, Physician [address] [place], [place] [phone] Social History Tobacco Use Types Packs/Day Years [...] on filedocumented in this encounter Care Teams B2B Sales Consultant Relationship Specialty Start Date End Date Bernice Martínez MD [address] [place] [address] PCP - General Pediatrics 12/31/17 10/23/23 documented as of this encounter
--- OUTSIDE RECORDS SUMMARY | 2024-08-18 14:08 | XMS_ITS | Encounter Summary ---
Author Organization [facility] Address [address] [place] [address] Phone Care Team Providers Care Mva Still Operator Name Role Phone Bernice Martínez MD Primary Care Provider [phone] Encounter Details Date Type Department Care Team (Late st Contact Info) Description 11/30/2016 Documentation [facility] [place] [address] [place] [address] Family Medicine, Physician [address] [place], [place] [phone] Social History Tobacco Use Types Packs/Day Years [...] on filedocumented in this encounter Care Teams Mva Still Operator Relationship Specialty Start Date End Date Bernice Martínez MD [address] [place] [address] PCP - General Pediatrics 12/31/17 10/23/23 documented as of this encounter
--- OUTSIDE RECORDS SUMMARY | 2024-08-18 14:08 | XMS_ITS | Encounter Summary ---
Author Organization [facility] Address [address] [place] [address] Phone Care Team Providers Care Training And Development Director Name Role Phone Bernice Martínez MD Primary Care Provider [phone] Encounter Details Date Type Department Care Team (Late st Contact Info) Description 11/30/[address] [facility] [address] [place] [address] Social History Tobacco Use Types Packs/Day Years [...] on filedocumented in this encounter Care Teams Training And Development Director Relationship Specialty Start Date End Date Bernice Martínez MD [address] [place] [address] PCP - General Pediatrics 12/31/17 10/23/23 documented as of this encounter
--- OUTSIDE RECORDS SUMMARY | 2024-08-18 14:08 | XMS_ITS | Clinical Summary ---
Author Organization [facility] Address [address] [place] [id number] Phone Care Team Providers Care Arcade Games Mechanic Name Role Phone Unavailable Primary Care Provider [...] 55, non-HDL 136. Diet suggestions sent through [facility]. Severe obstructive sleep apnea 11/06/2018 Overview (11/06/2018): [...] thoracolumbar region 06/12/2017 Overview (06/14/2020): Followed at [facility]. 05/22/17- They recommended surgery, however family wants to wait. The idea of surgery is overwhelming for the mother, the patient says she doesn't want to do it but will if she has to. Father completely against the surgery. According to mother and patient, [facility] does not want them wearing a brace, they are just going to wait and see if her scoliosis gets worse. 06/04- Family didn't go back as they were supposed to in summer 2017, but okay going back now, so re-referred. 07/04- never followed up with [facility]. Assessment & Plan (05/01/2019 10:56 AM EST): Never went back to [facility], they missed the appointment. I recommended they call again for f/u. Assessment & Plan (06/13/2018 9:22 AM EST): No pain, but realize her scoliosis is significant. New referral to [facility] as it's been a year since [...] complete this topic Procedures * Due to [place] [employer] law, this organization might not be sharing sensitive test results. Procedure Name Priority Date/Time Associated Diagnosis Comments SURESWAB (ADV) VAGINITIS PLUS, TMA Routine 07/01/2020 3:55 PM EDT Acute vaginitis from Last 3 Months or Most Recently Relevant to Health Maintenance Results * Due to [place] [employer] law, this organization might not be sharing sensitive test results. * (ABNORMAL) Vaginosis Vaginitis Plus (07/01/2020 3:55 PM EDT) BACTERIAL VAGINOSIS TEST NEGATIVE (NEG) [facility] Comment: No bacterial vaginosis targets by PCR detected in this patient's sample. ?? Note: This assay uses real time thread pulling machine attendant-mediated amplification (TMA) for detection and quantification of ribosomal RNA from bacteria associated with bacterial vaginosis (BV), including Lactobacillus (L. gasseri, L. crispatus, and L. jensenii), Gardnerella vaginalis, and Atopobium vaginae. Jewels Species POSITIVE(A) (NEG) [facility] Comment: Jewels species group (C. albicans, C. tropicalis, C. parapsilosis, C. dubliniensis) targets by PCR detected in this patient's sample. Jewels Glabrata, ALLISON NEGATIVE (NEG) [facility] Comment:No Jewels glabrata targets by PCR detected in this patient's sample. SureSwab, T.vaginalis RNA NEGATIVE (NEG) [facility] Comment: No Trichomonas vaginalis targets by PCR detected in this patient's sample. ?? Note: This assay uses real time thread pulling machine attendant-mediated amplification (TMA) for detection and quantification of ribosomal RNA from organisms associated with Jewels species group (C. albicans, C. tropicalis, C. parapsilosis, C. dubliniensis), Jewels glabrata, and Trichomonas vaginalis. Chlamydia Trachomatis, Amplified NEGATIVE (NEG) [facility] Comment: No Chlamydia Trachomatis RNA detected in this patient's sample ? (REFERENCE RANGE/NORMAL VALUE: NOT DETECTED) ? Note: This test uses thread pulling machine attendant- mediated amplification method to detect rRNA from C. Trachomatis N.GONORRHOEAE AMP PROBE NEGATIVE (NEG) [facility] Comment: No Neisseria Gonorrhoeae RNA detected in this patient's sample ? (REFERENCE RANGE/NORMAL VALUE: NOT DETECTED) ? NOTE: This test uses thread pulling machine attendant-mediated amplification method to detect rRNA from N.Gonorrhoeae. [...] without risk of sexual abuse. Consult the [facility] if needed. Contact phone number . Therapeutic failure or success cannot be determined with the Aptima Combo2 assay since nucleic acid may persist following appropriate antimicrobial therapy. The Centers for Disease Control and Prevention (CDC) recommends confirmatory retesting using culture or a different nucleic acid amplification test when positive results occur, if indicated. Testing performed or reported by [facility], a Service of [facility], [address] [place] [address] Beau Platt MD, Drawbench Operator Swab 07/01/2020 3:55 PM EDT 07/01/2020 10:14 PM EDT us Bernice Martínez MD LAB MICROBIOLOGY - GENERAL OR DERABLES Final Result [facility] from Last 3 Months or Most Recently Relevant to Health Maintenance Insurance [facility] NON [facility] FEDERAL
[2024-08-18 16:23] LABS: Bacterial Vaginosis PCR NEGATIVE (Negative); Candida Group PCR NOT DETECTED (Not Detect); Candida glab krusei PCR NOT DETECTED (Not Detect); Trichomonas vaginalis PCR NOT DETECTED (Not Detect)
[2024-08-18 16:55] LABS: CT PCR NOT DETECTED (Not Detect.); NG PCR NOT DETECTED (Not Detect.)
== END 2024-08-18 11:46 | disposition home or self-care (01) ==
LOC: HO.LNP 11:45
PROVIDERS: PCP Internal Medicine; Visit Provider Obstetrics & Gynecology
DX: N76.0 Acute vaginitis (principal); N93.9 Abnormal uterine and vaginal bleeding, unspecified
CPT/HCPCS: 81515; 87086; 87491; 87591

== ENCOUNTER 2024-10-08 10:06 | Outpatient (AMB) | payer BC, SELFPAY ==
--- NOTE | 2024-10-08 10:11 | A.OFFVIS_ITS ---
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 GC/CT with BV panel were negative. Urine culture sent last visit was negative PFSH Medical History Physical exam Cough Dizziness Palpitations Weight loss Scoliosis Surgical History No pertinent past surgical history Family History Mother No problems noted. Father No problems noted. Maternal Grandfather Breast cancer Paternal Grandmother Breast cancer Maternal Grandfather Cancer Social History Housing: House Alcohol intake: never Patient Tobacco Use Status: Never used Tobacco e-Cigarette/Vaping Use: Never Used Second Hand Smoke Exposure: No service: No Current occupational status: employed Current occupational exposures/hazards: No Cognitive needs: No Hearing needs: No Vision needs: No Female Reproductive History Menstrual Age of Menarche: 16 Review of Systems Const All systems reviewed & are unremarkable except as noted in HPI and below Reports as per HPI and Reports no additional complaints GI Reports no additional complaints Reports no additional complaints Assessment & Plan Assessment & Plan (1) Microscopic hematuria: Code(s): R31.29 - Other microscopic hematuria Category: Medical Plan: Urine dip showed persistent microscopic hematuria, urine culture sent last visit was negative. Discussed with the patient the possible causes of microscopic hematuria including but not limited to: interstitial cystitis, polyps, stones, masses, urethral inflammatory processes and others. CT abdomen/pelvis ordered and urology referral placed. Instructed the patient to call our office back in case a referral appointment is not scheduled, missed or canceled so that we will assist on rescheduling another appointment, the patient verbalized understanding agreed with the plan. Orders: Orders CT abdomen pelvis wo/w IV con Today R31.29 - Other microscopic hematuria Referrals Urology Referral R31.29 - Other microscopic hematuria Coding Level of Care Code Est Pt Level 3 (43637) Diagnoses Microscopic hematuria R31.29
--- OUTSIDE RECORDS SUMMARY | 2024-10-08 11:36 | XMS_ITS | Encounter Summary ---
Author Organization [facility] Address [address] [place] [address] Phone Care Team Providers Care Child Care Attendant School Name Role Phone Bernice Martínez MD Primary Care Provider [phone] Encounter Details Date Type Department Care Team (Late st Contact Info) Description 11/30/2016 Documentation [facility] Family Medicine [address] [place] [address] Family Medicine, Physician [address] [place], [place] [id number] Social History Tobacco Use Types Packs/Day Years [...] on filedocumented in this encounter Care Teams Child Care Attendant School Relationship Specialty Start Date End Date Bernice Martínez MD [address] [place] [address] PCP - General Pediatrics 12/31/17 10/23/23 documented as of this encounter
== END 2024-10-08 10:39 | disposition home or self-care (01) ==
LOC: HO.HWS 10:06
PROVIDERS: PCP Internal Medicine; Visit Provider Obstetrics & Gynecology
DX: R31.29 Other microscopic hematuria (principal)
CPT/HCPCS: 99213